=== PATIENT | female | born 1955 | race African-American/Black ===

== ENCOUNTER 2019-11-06 13:10 | Emergency (ER) | payer BC ==
[~2019-11-06] VITALS: Ht 175.3 cm; Wt 77.1 kg
[2019-11-06 13:12] VITALS: BP 160/80
[2019-11-06] MEDS ORDERED: Methocarbamol 750mg tab ORAL ONE (13:45)
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
--- NOTE | 2019-11-06 14:49 | Diagnostic Imaging Report ---
Indication: 8 out of 10 neck pain Technique: Spiral acquisitions obtained through the cervical spine. No IV contrast utilized. Multiplanar reconstructions were generated. Total dose length product 114 mGycm. CTDIvol(s) for mGy. Dose reduction achieved using automated exposure control. Comparison: none Findings: Bony alignment is normal. Vertebral body heights are preserved. No prevertebral soft tissue swelling. No acute fractures. No dislocations. At C3-4, there is degenerative disc narrowing. There is moderate to severe bilateral neural foraminal stenosis. There is broad-based posterior disc protrusion which results in mild narrowing of the spinal canal. At C4-5, there is degenerative disc narrowing. There is mild left, moderate right neural foraminal stenosis. There is broad-based posterior central disc protrusion which results in borderline narrowing of the spinal canal At C5-6, there is degenerative disc narrowing. There is mild left and moderate to severe right neural foraminal stenosis. There is central posterior disc protrusion resulting in mild narrowing of the spinal canal. At C6-7, there is mild degenerative disc narrowing. There is mild right neural foraminal stenosis. There is central posterior disc protrusion which results in mild spinal stenosis. At C7-T1, there is mild degenerative disc narrowing. There is minimal neural foraminal stenosis bilaterally. At the remaining levels, no significant disc bulge or protrusion or spinal stenosis. The included lung apices are clear. The thyroid is slightly heterogeneous. The upper aerodigestive tract is unremarkable Impression: No acute bony trauma Degenerative changes as detailed on a level bilateral basis above The CT scanner at [facility] is accredited by the [employer] and the scans are performed using protocols designed to limit radiation exposure to as low as reasonably achievable to attain images of sufficient resolution adequate for diagnostic evaluation.
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
[2019-11-06] MEDS ORDERED: IBUPROFEN600 MG ORAL (16:05)
[2019-11-06] MEDS ORDERED: CYCLOBENZAPRINE10 MG ORAL (16:05)
[2019-11-06 16:15] VITALS: BP 152/65
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
== END 2019-11-06 16:17 | disposition home or self-care (01) ==
LOC: EDBD 13:10 → EMR 14:24
DX: S16.1XXA Strain of muscle, fascia and tendon at neck level, initial encounter (principal); R51 Headache; V43.52XA Car driver injured in collision with other type car in traffic accident, initial encounter; Y92.410 Unspecified street and highway as the place of occurrence of the external cause
CPT/HCPCS: 70450; 72070; 72125; 99284